=== PATIENT | male | born 1950 | race Two or more races ===

== ENCOUNTER 2018-12-17 13:17 | Inpatient (IN) | payer OTHER ==
[~2018-12-17] VITALS: Ht 167.6 cm; Wt 79.4 kg
[~2018-12-17 13:17] MED LIST: ASPIR 8181 MG; ATORVASTATIN CA20 MG PO; LOTREL 5-10 MG1 CAP PO; METROPOLOL PO
[2018-12-18] MEDS ORDERED: AMLODIPINE-BEN1 EAC3 PO (16:22)
[2018-12-18] MEDS ORDERED: METOPROLOL SUCC25 MG PO (16:22)
== END 2018-12-19 12:05 | disposition home or self-care (01) | DRG 661 ==
LOC: CIR.AMB 13:17 → SURH 18:43
PROVIDERS: ADMIT Urology
PROC: 0T743DZ Dilation of Left Kidney Pelvis with Intraluminal Device, Percutaneous Approach (ICD-10-PCS; 2018-12-17)
PROC: 0TC13ZZ Extirpation of Matter from Left Kidney, Percutaneous Approach (ICD-10-PCS; principal; 2018-12-17 11:30)
DX: N20.0 Calculus of kidney (principal); I10 Essential (primary) hypertension